=== PATIENT | female | born 1990 | race American Indian/Alaskan Native ===

== ENCOUNTER 2016-11-03 19:45 | Outpatient (CLI) | payer OTHER, MEDICAID ==
[2016-11-03 21:23] VITALS: BP 110/68
== END 2016-11-03 22:25 | disposition home or self-care (01) ==
LOC: TRG 19:45
PROVIDERS: ATTEND Obstetrics & Gynecology
DX: O77.9 Labor and delivery complicated by fetal stress, unspecified (principal); V89.2XXA Person injured in unspecified motor-vehicle accident, traffic, initial encounter; Y93.89 Activity, other specified; Y92.89 Other specified places as the place of occurrence of the external cause; Y99.8 Other external cause status; Z3A.36 36 weeks gestation of pregnancy
CPT/HCPCS: 59025

== ENCOUNTER 2016-11-16 22:02 | Outpatient (CLI) | payer MEDICAID ==
[2016-11-16] MEDS ORDERED: MORPHINE IM ONE (22:40)
[2016-11-16] MEDS ORDERED: PHENERGAN PO ONE (22:40)
[2016-11-16 23:44] VITALS: BP 94/61
== END 2016-11-17 00:09 | disposition home or self-care (01) ==
LOC: TRG 22:02 → LD 11-17 02:28 → UNDOADMIN 11-17 02:28
PROVIDERS: ATTEND Obstetrics & Gynecology
DX: O47.9 False labor, unspecified (principal); Z3A.00 Weeks of gestation of pregnancy not specified
CPT/HCPCS: 96372; J2270; Q0169

== ENCOUNTER 2019-05-09 04:32 | Emergency (ER) | payer MEDICAID, OTHER ==
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
[2019-05-09 06:54] LABS: Basophils % (Auto) 0.4 % (0.0-1.8); Eosinophils % (Auto) 0.1 % (0.0-4.3); Hematocrit 37.3 % (30.3-42.9); Hemoglobin 12.6 gm/dl (10.1-14.3); Lymphocytes # (Auto) 0.8 K/mm3 (1.2-5.4); Mean Corpuscular HGB Conc 34 % (30-34); Mean Corpuscular Volume 92 fl (79-97); Monocytes # (Auto) 0.2 K/mm3 (0.0-0.8); Monocytes % (Auto) 6.5 % (0.0-7.3); Platelet Count 269 K/mm3 (140-440); Red Blood Count 4.07 M/mm3 (3.65-5.03); Red Cell Distribution Width 13.1 % (13.2-15.2)
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
[2019-05-09 07:10] LABS: BUN/Creatinine Ratio 11; Blood Urea Nitrogen 8 mg/dL (7-17); Calcium 8.8 mg/dL (8.4-10.2); Hemolysis Index 2
[2019-05-09 07:38] LABS: Amphetamine Screen,Urine PRESUMPTIVE NEGATIVE; Benzodiazepines Screen,Urine PRESUMPTIVE NEGATIVE; Cannabinoid Screen,Urine PRESUMPTIVE NEGATIVE; Cocaine Screen,Urine PRESUMPTIVE NEGATIVE; Methadone Screen,Urine PRESUMPTIVE NEGATIVE; Opiate Screen,Urine PRESUMPTIVE NEGATIVE
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
[2019-05-09 08:54] VITALS: BP 100/61
== END 2019-05-09 09:41 | disposition home or self-care (01) ==
LOC: ED 04:32
DX: S29.9XXA Unspecified injury of thorax, initial encounter (principal); V49.49XA Driver injured in collision with other motor vehicles in traffic accident, initial encounter; Y93.89 Activity, other specified; Y92.89 Other specified places as the place of occurrence of the external cause; Y99.8 Other external cause status
CPT/HCPCS: 36415; 70450; 71045; 72040; 80048; 80307; 84703; 85025; 99285; G0480; 80320